=== PATIENT | male | born 1955 | race Caucasian/White ===

== ENCOUNTER → 2018-07-01 | Outpatient (CLI) | payer OTHER ==
--- NOTE | 2018-07-01 16:48 | KCIC ---
Ankle brachial indices HISTORY: Claudication. Feet and hand numbness. Hypertension. Diabetic. FINDINGS: Right ankle brachial index is 1.03. Left ankle-brachial index is 1.04. IMPRESSION: Ankle-brachial indices are within normal limits. Electronically signed by: Evaristo Givens MD (07/01/2018 4:45 PM) [id number]
== END | disposition home or self-care (01) ==
LOC: KCIC US 14:56
PROVIDERS: ATTEND Family Medicine
DX: I73.9 Peripheral vascular disease, unspecified (principal); I10 Essential (primary) hypertension; E11.9 Type 2 diabetes mellitus without complications
CPT/HCPCS: 93922